=== PATIENT | male | born 1985 | race Caucasian/White ===

== ENCOUNTER 2018-12-28 00:30 | Emergency (ER) | payer MEDICARE, MEDICAID ==
[~2018-12-28] VITALS: Ht 172.7 cm; Wt 76.0 kg
[~2018-12-28 00:30] MED LIST: ALBU18HF2 INH; BAC10T PO; CYCL-1 PO; HYDR1TAB PO; HYDR25SU32 RC; KETO-23 PO
[2018-12-28 00:43] VITALS: BP 145/101
== END 2018-12-28 01:18 | disposition left against medical advice (07) ==
LOC: ER 00:31
DX: M79.642 Pain in left hand (principal); M79.641 Pain in right hand; Z53.21 Procedure and treatment not carried out due to patient leaving prior to being seen by health care provider

== ENCOUNTER 2019-10-30 11:06 | Emergency (ER) | payer MEDICARE, MEDICAID ==
[~2019-10-30] VITALS: Ht 172.7 cm; Wt 90.0 kg
[2019-10-30] MEDS ORDERED: ketorolac trometh inj. 60 MG/2 ML VIAL IM ONE (12:15)
[2019-10-30 13:19] VITALS: BP 142/98
== END 2019-10-30 13:15 | disposition home or self-care (01) ==
LOC: ER 11:06
DX: R07.81 Pleurodynia (principal); E78.00 Pure hypercholesterolemia, unspecified; I10 Essential (primary) hypertension; G89.29 Other chronic pain; Z98.890 Other specified postprocedural states; Z88.1 Allergy status to other antibiotic agents; Z79.899 Other long term (current) drug therapy
CPT/HCPCS: 71045; 93005; 96372; 99283; J1885

== ENCOUNTER 2019-11-07 02:00 | Emergency (ER) | payer MEDICARE, MEDICAID ==
[~2019-11-07] VITALS: Ht 177.8 cm; Wt 81.8 kg
[2019-11-07] MEDS ORDERED: CYCL-1 PO (02:31)
[2019-11-07] MEDS ORDERED: ketorolac trometh. 30mg/ml inj. IM ONE (02:35)
[2019-11-07 02:57] VITALS: BP 138/103
== END 2019-11-07 02:54 | disposition home or self-care (01) ==
LOC: ER 02:01
DX: R07.89 Other chest pain (principal); E78.00 Pure hypercholesterolemia, unspecified; I10 Essential (primary) hypertension; G89.29 Other chronic pain; F17.200 Nicotine dependence, unspecified, uncomplicated; Z98.890 Other specified postprocedural states; Z88.1 Allergy status to other antibiotic agents; Z79.899 Other long term (current) drug therapy
CPT/HCPCS: 93005; 96372; 99283; J1885

== ENCOUNTER 2021-06-01 08:11 | Emergency (ER) | payer MEDICARE, MEDICAID ==
[~2021-06-01] VITALS: Ht 172.7 cm; Wt 82.0 kg
[2021-06-01 09:41] LABS: BASOPHILS % (AUTO) 0.2 % (0-1); EOSINOPHILS % (AUTO) 0.2 % (0-6); HEMATOCRIT 47.4 % (42.0-52.0); HEMOGLOBIN 16.4 g/dl (14.0-17.9); LYMPHOCYTES # (AUTO) 1.6 X10'3 (1.1-4.8); LYMPHOCYTES % (AUTO) 8.6 % (21-51); MEAN CORPUSCULAR HEMOGLOBIN 34.2 PG (27.0-31.0); MEAN CORPUSCULAR HGB CONC 34.5 g/dL (33.0-36.5); MEAN CORPUSCULAR VOLUME 98.9 FL (78-98); MEAN PLATELET VOLUME 6.5 FL (7.4-10.4); MONOCYTES # (AUTO) 1.6 X10'3 (0-0.9); MONOCYTES % (AUTO) 8.6 % (2-12); NEUTROPHILS # (AUTO) 15.1 X10'3 (1.8-7.7); NEUTROPHILS % (AUTO) 82.4 % (42-75); PLATELET COUNT 262 X10'3 (140-440); RED BLOOD COUNT 4.79 X10'6 (4.70-6.10); RED CELL DISTRIBUTION WIDTH 12.3 % (11.5-14.5); WHITE BLOOD COUNT 18.3 X10'3 (4.5-11.0)
[2021-06-01 09:52] LABS: PARTIAL THROMBOPLASTIN TIME 25 SECONDS (22-32)
[2021-06-01 09:53] LABS: ALANINE AMINOTRANSFERASE 79 U/L (12-78); ALBUMIN 4.2 G/DL (3.4-5.0); ALBUMIN/GLOBULIN RATIO 1.4 (1.1-1.5); ALKALINE PHOSPHATASE 88 IU/L (46-116); ANION GAP 12 (8-16); ASPARTATE AMINO TRANSFERASE 83 U/L (10-37); BILIRUBIN,TOTAL 0.5 MG/DL (0.1-1.0); BLOOD UREA NITROGEN 9 MG/DL (7-18); BUN/CREATININE RATIO 8.3 (5.4-32.0); CALCIUM 8.3 MG/DL (8.5-10.1); CHLORIDE 102 MMOL/L (99-107); CREATININE 1.09 MG/DL (0.60-1.10); GLUCOSE 122 MG/DL (70-104); POTASSIUM 3.8 MMOL/L (3.5-5.1); SODIUM 137 MMOL/L (135-145); TOTAL CARBON DIOXIDE 23.2 MMOL/L (24-32); TOTAL PROTEIN 7.3 G/DL (6.4-8.2); eGFR 76 ML/MIN
[2021-06-01 10:02] LABS: CREATINE KINASE 1450 U/L (39-308); ETHANOL < 0.010 GM/DL (0.0-0.010)
[2021-06-01] MEDS ORDERED: normal saline 1000ML IV soln IVB ONE ×2 (10:50→12:30)
[2021-06-01] MEDS ORDERED: acetaminophen 325mg tablet PO ONE (10:50)
[2021-06-01] MEDS ORDERED: LORazepam 2 mg/ml vial IV ONE (11:00)
[2021-06-01] MEDS ORDERED: CHLO25CA10 PO (13:10)
[2021-06-01 13:54] VITALS: BP 149/97
== END 2021-06-01 13:56 | disposition home or self-care (01) ==
LOC: ER 08:12
DX: R56.9 Unspecified convulsions (principal); F10.239 Alcohol dependence with withdrawal, unspecified; M25.511 Pain in right shoulder; F12.120 Cannabis abuse with intoxication, uncomplicated; E78.00 Pure hypercholesterolemia, unspecified; I10 Essential (primary) hypertension; G89.29 Other chronic pain; F41.9 Anxiety disorder, unspecified; F31.9 Bipolar disorder, unspecified; F17.200 Nicotine dependence, unspecified, uncomplicated; Z72.89 Other problems related to lifestyle; Z88.1 Allergy status to other antibiotic agents; Z91.048 Other nonmedicinal substance allergy status; Z79.899 Other long term (current) drug therapy; Y90.5 Blood alcohol level of 100-119 mg/100 ml
CPT/HCPCS: 36415; 70450; 72125; 73030; 80053; 80320; 82550; 85025; 85610; 85730; 96361; 96374; 99285; J2060; J7030

== ENCOUNTER 2021-09-13 09:23 | Outpatient (CLI) | payer MEDICARE, MEDICAID ==
[~2021-09-13 09:23] MED LIST changes: +CHLO25CA10 PO
== END 2021-09-13 23:59 | disposition home or self-care (01) ==
LOC: RAD 09:23
PROVIDERS: ATTEND Psychiatry & Neurology Neurology
DX: R94.01 Abnormal electroencephalogram [EEG] (principal); G40.109 Localization-related (focal) (partial) symptomatic epilepsy and epileptic syndromes with simple partial seizures, not intractable, without status epilepticus; Z87.820 Personal history of traumatic brain injury
CPT/HCPCS: 95816

== ENCOUNTER 2025-10-09 12:38 | Emergency (ER) | payer MEDICARE, MEDICAID ==
[~2025-10-09] VITALS: Ht 172.7 cm; Wt 83.1 kg
[2025-10-09 12:55] VITALS: BP 133/94; PULSE 78; O2SAT 97
--- NOTE | 2025-10-09 13:20 | Physician Documentation ---
History of Present Illness ~ Chief Complaint: Back Pain Stated Complaint: BACK PAIN Time Seen by MD: 13:46 Primary Medical Doctor: VENTUR[facility] OTOO[facility] Patient is a very pleasant 40-year-old male that presents to the emergency department for acute on chronic low back pain. Patient reports he has a significant history of lumbosacral pain. Patient denies any new injuries. Patient reports he was seen approximately 3 months ago and underwent multimodal therapy here in the emergency department with significant improvement. Patient denies any new injuries at this time. Patient denies incontinence of bowel or bladder any perineal numbness any numbness or tingling of his upper or lower extremities. Patient reports he has significant pain with bending. Reports he has pain radiating bilaterally into his buttock and down his legs. Patient reports that he is consistent with his previous episodes of lumbosacral strain. Medication Reconciliation Allergies: Coded Allergies: Bleach (Sodium Hypochlorite) (Verified Allergy, Unknown, 10/09/25) amoxicillin (Verified Allergy, Unknown, 10/09/25) Scheduled Albuterol Sulfate (Ventolin Hfa), 2 PUFFS INH Q4HPRN Baclofen* (Lioresal*), 10 MG PO TID, (Reported) Chlordiazepoxide Hcl (Librium), 25 MG PO DIRECTED Cyclobenzaprine* (Cyclobenzaprine*), 1 TAB PO BID Hydrocortisone Acetate (Anusol-Hc), 1 SUPP RC BID Ketorolac Tromethamine (Toradol), 10 MG PO TID, (Reported) Scheduled PRN Cyclobenzaprine* (Cyclobenzaprine*), 1 TABLET PO Q8H PRN for muscle spasms Cyclobenzaprine* (Cyclobenzaprine*), 1 TAB PO TID PRN for pain Hydrocodone/Acetaminophen (Vicodin 5-500 Tablet), 1 TAB PO TID PRN, (Reported) Past Medical History Past Medical History: High Cholesterol, Hypertension, Chronic Pain, Anxiety, Bipolar Past Surgical History: orthopedic surgeries Alcohol Use: Alcoholic Drug Use: none Lives with: Spouse Lives In: Home Occupation: disabled Review of Systems ROS As stated above in the HPI, otherwise all systems are reviewed and negative. Physical Exam Physical Exam Vital Signs: Temperature: 97.7, Source: Temporal, Heart Rate: 78, Respiratory Rate: 16, BP: 133/94, Pulse Oximetry: 97, Weight: 83.100 Oxygen Flow Rate: 0 Physical Exam VITALS: Reviewed and as above. GENERAL: Alert, no apparent distress. HEENT: Normocephalic, atraumatic, PERRL, EOMI, dry mucosa, no erythema RESPIRATORY: Lungs clear, normal breath sounds, no respiratory distress. CHEST: No accessory muscle use, no retractions CV: Regular rate, rhythm, no edema, no murmur, No: JVD GI: Soft, non-tender, bowels sounds present, no rebound, guarding, or rigidity BACK: No CVA tenderness, or swelling MUSCULOSKELETAL No deformities, no edema, significant pain with bending, reduced range of motion, positive straight leg raise on the left and right during examination. SKIN: Warm and dry, no rash NEURO: Oriented x4, No motor or sensory deficit PSYCH: Normal mood and affect, no agitation Progress Results/Orders Results/Orders Completed Orders - OLEGARIO ALY Ketorolac Trometh 15mg/Ml Vial (Toradol (10/09/25 13:55) Methylprednisolone Sod Succ (Solumedrol (10/09/25 13:55) Acetaminophen 325mg Tablet (Tylenol Tabl (10/09/25 13:55) Medications Received in ER Medications (Trade) Dose Ordered Sig/Prasanth Route PRN Reason Start Time Stop Time Status Last Admin Dose Admin (Toradol injection) 30 mg ONCE ONCE IM 10/09/25 13:55 10/09/25 13:56 DC 10/09/25 14:10 30 MG (SoluMEDROL 125mg inj) 125 mg ONCE ONCE IM 10/09/25 13:55 10/09/25 13:56 DC 10/09/25 14:05 125 MG (Tylenol tablet) 975 mg ONCE ONCE PO 10/09/25 13:55 10/09/25 13:56 DC 10/09/25 14:07 975 MG Vital Signs 10/09/25 10/09/25 12:55 14:10 Temp 97.7 Pulse 78 Resp 16 16 B/P (MAP) 133/94 Pulse Ox 97 O2 Flow Rate 0 Medical Decision Making Additional information obtaine: other Findings Medical Decision Making - Discharge Chief Complaint: Acute on chronic low back pain History of Present Illness: 40-year-old male with history of recurrent lumbosacral pain presents with acute exacerbation of chronic low back pain. Patient denies new trauma, bowel or bladder incontinence, saddle anesthesia, or upper/lower extremity paresthesias. Previous episode approximately 3 months ago responded well to multimodal therapy in the emergency department. Current s ymptoms include pain with bending and bilateral radiation to buttocks and lower extremities, consistent with prior episodes of lumbosacral strain. Red Flag Assessment: Comprehensive review of systems negative for red flag symptoms including cauda equina syndrome (no urinary retention, fecal incontinence, or saddle anesthesia), progressive neurologic deficits, fever, unexplained weight loss, history of malignancy, or recent significant trauma. Physical examination revealed no saddle sensation disturbance, bladder dysfunction, or abnormal neurologic findings. Emergency Department Course: Patient received multimodal analgesia including ketorolac (NSAID), methylprednisolone, and acetaminophen with significant symptomatic improvement. This approach aligns with evidence-based recommendations for acute low back pain management. Assessment and Plan: Diagnosis: Acute exacerbation of chronic nonspecific low back pain with bilateral lower extremity radicular symptoms Treatment Rationale: The [employer] recommends NSAIDs or skeletal muscle relaxants as first-line pharmacologic treatment for acute or subacute low back pain, with moderate-quality evidence supporting their use. [1] Given the patient's favorable response to emergency department treatment and absence of red flag symptoms, conservative outpatient management is appropriate. Discharge Medications: 10-day course of oral NSAID therapy for continued pain management, as NSAIDs demonstrate moderate-quality evidence for small improvements in pain intensity and function in acute low back pain Skeletal muscle relaxant as needed for muscle spasm, supported by moderate- quality evidence showing benefit for short-term pain relief Patient Education: Patient counseled on the generally favorable prognosis of acute low back pain, with high likelihood of substantial improvement within the first month. Advised to remain active as tolerated and avoid prolonged bed rest, as activity maintenance is a cornerstone of acute low back pain management. Patient instructed on use of superficial heat therapy at home, which has moderate-quality evidence for pain improvement. Safety Considerations: NSAIDs prescribed at lowest effective dose for shortest duration necessary given gastrointestinal and renal risks. Patient counseled on common side effects of skeletal muscle relaxants, particularly [employer] effects including sedation. Follow-up Plan: Patient instructed to return to emergency department or seek urgent evaluation if develops any red flag symptoms including new bowel/bladder dysfunction, progressive weakness, saddle anesthesia, or fever. Advised to follow up with primary care provider within 1-2 weeks for reassessment. If symptoms persist beyond 8 weeks despite appropriate conservative therapy, will consider imaging and further evaluation for specific causes. Disposition: Discharged home in stable condition with prescriptions and return precautions understood. Differential Dx:Considerations: Musculoskeletal pain, Other Departure Disposition: 01 HOME / SELF CARE / HOMELESS Impression: Primary Impression: Back problem Additional Impressions: Low back pain Lumbosacral strain Sciatica Discharge Instructions: Sciatica, Lumbosacral Strain Additional Instructions: Your Diagnosis You were treated in the emergency department for acute low back pain. Your examination showed no signs of serious problems with your spine, nerves, or spinal cord. This is good news and means you should get better with time and proper care. What to Expect Most people with low back pain like yours get much better within the first month. While you may still have some pain during this time, it should gradually improve. It's normal for low back pain to come and go, especially if you've had it before. Staying Active The most important thing you can do is stay active. Even though it may hurt a little, continuing your normal daily activities will help you heal faster. You should: Avoid bed rest - staying in bed can actually make your back pain worse Continue with your usual activities as much as you can tolerate Gradually increase your activity level as you feel better Return to work when you feel able, even if you still have some mild pain Pain Management at Home You were given medications in the emergency department that helped your pain. To continue managing your pain at home: Medications: Take your prescribed muscle relaxant (Flexeril) as directed for up to 10 days. This medication can make you drowsy, so do not drive or operate machinery while taking it. You may use [id number] pain relievers like ibuprofen or naproxen (NSAIDs) for pain. These work well for back pain but should be taken with food to protect your stomach. Take the lowest dose that controls your pain and use these medications for the shortest time needed Home Remedies: Apply heat to your lower back using a heating pad or warm compress. This can help reduce pain and is safe to use. Gentle stretching in directions that feel comfortable may help Warning Signs - When to Seek Immediate Care Return to the emergency department right away if you develop any of these symptoms: Loss of control of your bladder or bowels (unable to hold your urine or stool) Numbness in your groin, buttocks, or genital area New weakness in your legs Fever or chills Severe pain that gets much worse despite taking your medications Numbness or tingling that spreads or gets worse Follow-Up Care Schedule an appointment with your primary care doctor within 1-2 weeks If your pain is not improving after 2 months, your doctor may recommend physical therapy or other treatments Bring a list of all medications you're taking to your appointment Activity Modifications While you should stay active, you may need to temporarily modify certain activities: Avoid heavy lifting (over 20-30 pounds) until your pain improves Use proper lifting technique: bend at your knees, not your waist Take breaks if you need to sit or stand for long periods Listen to your body - some discomfort is okay, but stop if pain becomes severe What NOT to Do Do not stay in bed all day - this can make your back pain worse Do not wait to see your doctor if you develop any warning signs listed above Do not take more medication than prescribed or recommended on the label Questions? If you have questions about your care or medications, contact your primary care doctor. If you cannot reach your doctor and have concerns about serious symptoms, return to the emergency department. Remember: Most people with low back pain like yours recover well with time and by staying active. Be patient with yourself as you heal. Referrals: NO PRIMARY CARE PROVIDER (PCP) Prescriptions Cyclobenzaprine* (Cyclobenzaprine*) 10 Mg Tablet 1 TAB PO TID for 10 Days, #10 TAB Prov: OLEGARIO ALY 10/09/25 Education Educated: Patient Educated regarding: diagnosis, treatment, need for follow up Signature Scribe Signature: A Attestation: Scribed for Olegario Aly by ALEJANDRO Kwon . 10/09/25 15:07 OLEGARIO ALY Oct 09, 2025 13:20
[2025-10-09 14:10] VITALS: RESP 16
[2025-10-09] MEDS: ketorolac trometh 15mg/ml vial 15 MG/ML ML IM ONE (14:10)
[2025-10-09] MEDS ORDERED: CYCL-1 PO (15:06)
[2025-10-09 15:17] VITALS: TEMP 97.7
== END 2025-10-09 15:19 | disposition home or self-care (01) ==
LOC: ER 12:38
DX: S39.012A Strain of muscle, fascia and tendon of lower back, initial encounter (principal); I10 Essential (primary) hypertension; F31.9 Bipolar disorder, unspecified; F41.9 Anxiety disorder, unspecified; E78.00 Pure hypercholesterolemia, unspecified; F10.90 Alcohol use, unspecified, uncomplicated; Z88.1 Allergy status to other antibiotic agents; Z88.8 Allergy status to other drugs, medicaments and biological substances; Z79.899 Other long term (current) drug therapy; Z98.890 Other specified postprocedural states; Y90.9 Presence of alcohol in blood, level not specified; X58.XXXA Exposure to other specified factors, initial encounter; Y93.89 Activity, other specified; Y92.89 Other specified places as the place of occurrence of the external cause; Y99.8 Other external cause status
CPT/HCPCS: 96372; 99284; J1885; J2919